=== PATIENT | female | born 2000 | race Hispanic/Latino ===

== ENCOUNTER 2025-02-28 17:43 | Emergency (ER) | payer OTHER, SELFPAY ==
[2025-02-28 18:04] VITALS: BP 128/60; PULSE 93; RESP 17; TEMP 36.6; O2SAT 97; BMI 29.7
== END 2025-02-28 21:35 | disposition left against medical advice (07) ==
PROVIDERS: Emergency Provider Emergency Medicine
CPT/HCPCS: 99281